=== PATIENT | female | born 1990 | race Caucasian/White ===

== ENCOUNTER 2024-02-25 15:14 | Emergency (ER) | payer MEDICAID ==
[~2024-02-25] VITALS: Ht 154.9 cm; Wt 65.8 kg
[2024-02-25 15:30] VITALS: BP_SYST 117; PULSE 60; RESP 18; TEMP 97.4; O2SAT 99
[2024-02-25 16:01] LABS: BASOPHILS # (AUTO) 0.1 K/uL (0.0-0.2); BASOPHILS % (AUTO) 0.8 % (0.0-2.0); EOSINOPHILS # (AUTO) 0.1 K/uL (0.0-0.4); EOSINOPHILS % (AUTO) 0.9 % (0.0-4.0); LYMPHOCYTES # (AUTO) 1.7 K/uL (1.0-5.5); LYMPHOCYTES % (AUTO) 21.9 % (20.5-51.5); MEAN CORPUSCULAR HEMOGLOBIN 30 pg (27-31); MEAN CORPUSCULAR HGB CONC 34 % (32-36); MEAN CORPUSCULAR VOLUME 88 fL (79.0-98.0); MONOCYTES # (AUTO) 0.4 K/uL (0.0-1.0); MONOCYTES % (AUTO) 4.9 % (1.7-9.3); NEUTROPHILS # (AUTO) 5.6 K/uL (1.8-7.7); NEUTROPHILS % (AUTO) 71.5 % (40.0-70.0); PLATELET COUNT (AUTO) 188 K/uL (130-430); RED BLOOD CELL COUNT(AUTO) 4.68 MIL/uL (4.2-6.2); RED CELL DISTRIBUTION WIDTH 13.7 % (9.0-15.0); WHITE BLOOD COUNT (AUTO) 7.9 K/uL (4.8-10.8)
[2024-02-25] MEDS ORDERED: MEDR10TA72 PO (17:15)
[2024-02-25] MEDS ORDERED: ONDA-8 TL (17:15)
[2024-02-25 17:36] VITALS: BP_SYST 120; PULSE 63; RESP 16; TEMP 97.8; O2SAT 98
== END 2024-02-25 17:36 | disposition home or self-care (01) ==
LOC: SED 15:14
DX: N92.0 Excessive and frequent menstruation with regular cycle (principal)
CPT/HCPCS: 36415; 81025; 85025; 99283